=== PATIENT | female | born 1975 | race Caucasian/White ===

== ENCOUNTER 2017-12-15 15:02 | Emergency (ER) | payer MEDICAID ==
[2017-12-15] MEDS ORDERED: MAGNESIUM SULF 2 GM/WATER 50 ML IV ONE (15:08)
[2017-12-15] MEDS: ALBUTEROL 3 ML DEYVIAL IH ONE ×2 (15:10→15:35)
--- NOTE | 2017-12-15 15:18 | EDPHY ---
H & P Time Seen by Provider: 12/15/17 15:15 HPI/ROS: CHIEF COMPLAINT: Asthma exacerbation HISTORY OF PRESENT ILLNESS: Patient is a 42-year-old female with a history of asthma and depression anxiety who comes to the emergency department complaining of severe asthma attack. Patient states that she has been running out of her albuterol inhaler over the last 2 days and neglected to get a new refill. She also takes Advair daily. She had acute worsening of symptoms about an hour ago. Her friend called 911. By the time they arrived she was cyanotic and barely breathing. They gave her 2 doses of epinephrine and 2 nebulized treatments a as well as initiated epinephrine drip and 125 of IV Solu-Medrol. They also placed her on BiPAP. By the time she arrived here she is drowsy but arousable and is able to answer most questions with one-word sentences. She has diffuse wheezes. She denies any cardiac history. She denies illness over the last few days. She does admit to using methamphetamine about an hour ago. Severity: Severe Modifying factors: Medications REVIEW OF SYSTEMS: Constitutional: denies: chills, fever, recent illness, recent injury EENTM: denies: blurred vision, double vision, nose congestion Respiratory: See HPI Cardiac: denies: chest pain, irregular heart rate, lightheadedness, palpitations Gastrointestinal/Abdominal: denies: abdominal pain, diarrhea, nausea, vomiting, blood streaked stools Genitourinary: denies: dysuria, frequency, hematuria, pain Musculoskeletal: denies: joint pain, muscle pain Skin: denies: lesions, rash, jaundice, bruising Neurological: denies: headache, numbness, paresthesia, tingling, dizziness, weakness Hematologic/Lymphatic: denies: blood clots, easy bleeding, easy bruising Immunologic/allergic: denies: HIV/AIDS, transplant 10 systems reviewed and negative except as noted EXAM: GENERAL: Severe distress, pale, altered HEAD: Atraumatic, normocephalic. EYES: Pupils equal round and reactive to light, extraocular movements intact, sclera anicteric, conjunctiva are normal. ENT: TMs normal, nares patent, oropharynx clear without exudates. Moist mucous membranes. NECK: Normal range of motion, supple without lymphadenopathy or JVD. LUNGS: Diffuse wheezes, minimal breath sounds HEART: Tachycardic ABDOMEN: Soft, nontender, normoactive bowel sounds. No guarding, no rebound. No masses appreciated. BACK: No CVA tenderness, no spinal tenderness, step-offs or deformities EXTREMITIES: Normal range of motion, no pitting or edema. No clubbing or cyanosis. NEUROLOGICAL: Cranial nerves II through XII grossly intact. Normal speech. 4/ 5 strength diffusely, normal movement in all extremities, normal sensation, normal reflexes PSYCH: Normal mood, normal affect. SKIN: Pale Source: Patient Exam Limitations: No limitations - Medical/Surgical History Hx Asthma: Yes Hx Chronic Respiratory Disease: Yes Hx Diabetes: No Hx Cardiac Disease: No Hx Renal Disease: No Hx Cirrhosis: No Hx Alcoholism: No Hx HIV/AIDS: No Other PMH: Depression, anxiety, substance abuse, scoliosis post figueroa placement - Family History Significant Family History: Asthma - Social History Smoking Status: Current some day smoker Alcohol Use: Occasionally Drug Use: Other Constitutional: Initial Vital Signs Temperature (C) 36.5 C 12/15/17 15:02 Heart Rate 118 H 12/15/17 15:02 Respiratory Rate 32 H 12/15/17 15:02 Blood Pressure 137/106 H 12/15/17 15:02 O2 Sat (%) 100 12/15/17 15:02 O2 Delivery Mode Room Air O2 (L/minute) 2 Allergies/Adverse Reactions: aspirin Allergy (Verified 12/15/17 15:07) Home Medications: Medication Instructions Recorded Albuterol Hfa Anes Only [Proair 2 puffs IH QID PRN 12/15/17 Hfa Icu (*)] Fluticasone/Salmeter 250/50Mcg 1 puffs IH BID 12/15/17 [Advair 250/50 (*)] Gabapentin 600 mg PO BID 12/15/17 QUEtiapine FUMARATE [Seroquel 100 200 mg PO HS 12/15/17 mg (*)] Sertraline HCl [Zoloft 100mg (*)] 150 mg PO DAILY 12/15/17 clonazePAM [Clonazepam] 0.5 mg PO DAILY 12/15/17 Medical Decision Making - Diagnostics EKG Interpretation: An EKG obtained and was read and documented in trace view. Please see trace view for full reading and report. Sinus tachycardia, no acute ischemic changes Imaging Results: Imaging Impressions Chest X-Ray 12/15/17 15:09 Impression: Peribronchial thickening which can be seen with airways disease/ bronchitis. Imaging: Discussed imaging studies w/ call out clerk Radiologist ED Course/Re-evaluation: The patient was started on IV magnesium and on Heliox with continuous neb. She has responded very well and is now on the equivalent of 2 L nasal cannula with a continuous neb through Heliox room air mixture. She is much more alert. Her heart rate is decreasing. 4:10 p.m. the patient is looking significantly better. She is saturating 95% on 2 L. She has finished her nebulizers. I recommended admission for further observation and treatment especially when her medication wears off. She refuses. She understands the risks involved. She has normal cognition and capacity. She understands that her symptoms may rebound as the medication wears off. She continues to refuse admission. She does ask for take home albuterol. I convinced her to stay in the ER for another hour of observation. 5:45 p.m. the patient is saturating 96% on room air. She is awake and alert and is eager to go home. I have given her the AMA form and discussed it with her. Differential Diagnosis: Partial list of the Differential diagnosis considered include but were not limited to; respiratory arrest, asthma exacerbation, substance abuse and although unlikely based on the history and physical exam, I also considered acute coronary disease, PE, arrhythmia, pneumonia. Critical Care Time: Critical care time spent by me, Dr. Ziegler exclusive with this patient was 45 minutes, exclusive of the PA time exclusive of procedures. The organ system that was at risk was pulmonary and I gave medications, resuscitation, prescription to prevent worsening of the patient's condition - Data Points Laboratory Results: Laboratory Results 12/15/17 15:14 12/15/17 15:14 12/15/17 12/15/17 12/15/17 15:18 15:14 15:14 WBC RBC Hgb POC Hgb 14.6 gm/dL gm/dL (12.6-16.3) Hct POC Hct 43 % % (38-47) MCV MCH MCHC RDW Plt Count MPV Neut % (Auto) Lymph % (Auto) Polk % (Auto) Eos % (Auto) Baso % (Auto) Nucleat RBC Rel Count Absolute Neuts (auto) Absolute Lymphs (auto) Absolute Monos (auto) Absolute Eos (auto) Absolute Basos (auto) Absolute Nucleated RBC Immature Gran % Immature Gran # POC Sodium 139 mEq/L mEq/L (135-145) Sodium 139 mEq/L mEq/L (135-145) POC Potassium 3.9 mEq/L mEq/L (3.3-5.0) Potassium 4.3 mEq/L mEq/L (3.3-5.0) POC Chloride 102 mEq/L mEq/L (97-110) Chloride 103 mEq/L mEq/L (97-110) Carbon Dioxide 25 mEq/l mEq/l (22-31) Anion Gap 11 mEq/L mEq/L (8-16) POC BUN 11 mg/dL mg/dL (7-23) BUN 12 mg/dL mg/dL (7-23) Creatinine 0.7 mg/dL mg/dL (0.6-1.0) POC Creatinine 0.7 mg/dL mg/dL (0.6-1.0) Estimated GFR > 60 Glucose 199 mg/dL H mg/dL (70-100) POC Glucose 204 mg/dL H mg/dL (70-100) Calcium 9.0 mg/dL mg/dL (8.5-10.4) Beta HCG, Qual NEGATIVE 12/15/17 15:14 WBC 7.24 10^3/uL 10^3/uL (3.80-9.50) RBC 4.78 10^6/uL 10^6/uL (4.18-5.33) Hgb 13.4 g/dL g/dL (12.6-16.3) POC Hgb Hct 42.3 % % (38.0-47.0) POC Hct MCV 88.5 fL fL (81.5-99.8) MCH 28.0 pg pg (27.9-34.1) MCHC 31.7 g/dL L g/dL (32.4-36.7) RDW 15.0 % % (11.5-15.2) Plt Count 276 10^3/uL 10^3/uL (150-400) MPV 9.7 fL fL (8.7-11.7) Neut % (Auto) 41.4 % % (39.3-74.2) Lymph % (Auto) 47.1 % H % (15.0-45.0) Polk % (Auto) 7.2 % % (4.5-13.0) Eos % (Auto) 3.7 % % (0.6-7.6) Baso % (Auto) 0.3 % % (0.3-1.7) Nucleat RBC Rel Count 0.0 % % (0.0-0.2) Absolute Neuts (auto) 3.00 10^3/uL 10^3/uL (1.70-6.50) Absolute Lymphs (auto) 3.41 10^3/uL H 10^3/uL (1.00-3.00) Absolute Monos (auto) 0.52 10^3/uL 10^3/uL (0.30-0.80) Absolute Eos (auto) 0.27 10^3/uL 10^3/uL (0.03-0.40) Absolute Basos (auto) 0.02 10^3/uL 10^3/uL (0.02-0.10) Absolute Nucleated RBC 0.00 10^3/uL 10^3/uL (0-0.01) Immature Gran % 0.3 % % (0.0-1.1) Immature Gran # 0.02 10^3/uL 10^3/uL (0.00-0.10) POC Sodium Sodium POC Potassium Potassium POC Chloride Chloride Carbon Dioxide Anion Gap POC BUN BUN Creatinine POC Creatinine Estimated GFR Glucose POC Glucose Calcium Beta HCG, Qual Medications Given: Discontinued Medications Albuterol (Proventil Neb) 12 ml IH EDNOW ONE Stop: 12/15/17 15:28 Last Admin: 12/15/17 15:35 Dose: Not Given Albuterol Sulfate (Proventil Inh Prepack) 1 mdi TAKEHOME EDNOW ONE Stop: 12/15/17 16:49 Last Admin: 12/15/17 16:58 Dose: 1 mdi Albuterol/Ipratropium (Duoneb) 12 ml IH EDNOW ONE Stop: 12/15/17 15:36 Last Admin: 12/15/17 15:35 Dose: 12 ml Magnesium Sulfate (Magnesium Sulf 2 Gm (Premix)) 50 mls @ 50 mls/hr IV EDNOW ONE Stop: 12/15/17 16:07 Last Admin: 12/15/17 15:10 Dose: 50 mls Ketorolac Tromethamine (Toradol) 15 mg IVP EDNOW ONE Stop: 12/15/17 15:30 Last Admin: 12/15/17 15:33 Dose: 15 mg Point of Care Test Results: Chemistry 12/15/17 15:18 POC Sodium 139 mEq/L mEq/L (135-145) POC Potassium 3.9 mEq/L mEq/L (3.3-5.0) POC Chloride 102 mEq/L mEq/L (97-110) POC BUN 11 mg/dL mg/dL (7-23) POC Creatinine 0.7 mg/dL mg/dL (0.6-1.0) POC Glucose 204 mg/dL H mg/dL (70-100) ISTAT H&H 12/15/17 15:18 POC Hgb 14.6 gm/dL gm/dL (12.6-16.3) POC Hct 43 % % (38-47) Departure - Departure Disposition: Against Medical Advice Clinical Impression: Exacerbation of asthma Qualifiers: Asthma severity: severe Asthma persistence: unspecified Qualified Code(s): J45.901 - Unspecified asthma with (acute) exacerbation Condition: Fair Instructions: Albuterol (By breathing), Asthma (DC) Referrals: Patient,NotPresent [Unknown] - As per Instructions [facility],. [Clinic] - As per Instructions
[2017-12-15] MEDS ORDERED: KETOROLAC 15 MG/1 ML SDV IVP ONE (15:29)
[2017-12-15] MEDS ORDERED: IPRATROPIUM/ALBUTEROL 3 ML DEYVIAL IH ONE (15:35)
[2017-12-15 15:44] LABS: PLATELET COUNT 276 10^3/uL (150-400)
--- NOTE | 2017-12-15 16:12 | CPEKG ---
Test Reason : OPEN Blood Pressure : / mmHG Vent. Rate : 118 BPM Atrial Rate : 118 BPM P-R Int : 143 ms QRS Dur : 094 ms QT Int : 325 ms P-R-T Axes : 073 093 026 degrees QTc Int : 456 ms Sinus tachycardia Confirmed by Galo Ziegler ([id number]) on 12/15/2017 4:11:29 PM Referred By: Confirmed By:Galo Ziegler
[2017-12-15] MEDS ORDERED: ALBUTEROL INH PREPACK MDI TAKEHOME ONE (16:48)
[2017-12-15 17:04] VITALS: BP 123/91
== END 2017-12-15 17:04 | disposition left against medical advice (07) ==
LOC: EDBD 15:02
DX: J45.901 Unspecified asthma with (acute) exacerbation (principal); F32.9 Major depressive disorder, single episode, unspecified; F41.9 Anxiety disorder, unspecified; F17.200 Nicotine dependence, unspecified, uncomplicated
CPT/HCPCS: 82435-PO; 82565-PO; 82947-PO; 84132-PO; 84295-PO; 84520-PO; 85014-PO; 96365; J1885